=== PATIENT | female | born 1975 | race Caucasian/White ===

== ENCOUNTER 2016-11-07 20:22 | Emergency (ER) | payer OTHER ==
[~2016-11-07] VITALS: Ht 165.1 cm; Wt 110.2 kg
[~2016-11-07 20:22] MED LIST: ATORVASTATIN CA20 MG PO; BENADRYL ALLERG25 MG PO; CRANBERRY300 MG PO; DICLOFENAC SODI75 MG PO; DIFLUCAN100 MG PO; ESCITALOPRAM OX10 MG PO; FLOMAX0.4 MG PO; INDOMETHACIN50 MG PO; LIDOCAINE30 G TOP; LIPITOR20 MG PO; MEDROL4 M1 PO; MELOXICAM15 MG PO; NAPROXEN500 MG PO; NARATRIPTAN2.5 MG PO; NORCO 5-325 TA1 EACH PO; OMEPRAZOLE20 MG PO; OXYCODONE HCL5 MG PO; PERCOCET 7.5-31 EACH PO; PRENATAL 19 TA1 EAC1 PO; SUMATRIPTAN SUC50 MG PO; TOPIRAMATE25 MG PO; TYLENOL SINUS PO; VALIUM5 MG PO; WELLBUTRIN XL300 MG PO; ZANAFLEX4 MG PO; ZONISAMIDE; [UNRECOGNIZED DRUG - REMARK]
[2016-11-07] MEDS ORDERED: NIACIN100 MG PO (20:41)
[2016-11-07] MEDS ORDERED: ASPIRIN325 MG PO (20:41)
== END 2016-11-07 23:06 | disposition home or self-care (01) ==
LOC: ED 20:22
DX: R51 Headache (principal); F32.9 Major depressive disorder, single episode, unspecified; F17.200 Nicotine dependence, unspecified, uncomplicated; Z87.442 Personal history of urinary calculi; Z98.51 Tubal ligation status; Z91.048 Other nonmedicinal substance allergy status; Z88.5 Allergy status to narcotic agent; Z88.1 Allergy status to other antibiotic agents; Z79.899 Other long term (current) drug therapy; Z79.82 Long term (current) use of aspirin
CPT/HCPCS: 96361; 96374; 96375; 99282; J1200; J1885; J2765; J7030

== ENCOUNTER 2016-11-26 12:17 | Emergency (ER) | payer OTHER ==
[~2016-11-26] VITALS: Ht 165.1 cm; Wt 145.2 kg
[~2016-11-26 12:17] MED LIST changes: +ASPIRIN325 MG PO; +NIACIN100 MG PO
[2016-11-26] MEDS ORDERED: ZITHROMAX250 MG PO (14:00)
[2016-11-26] MEDS ORDERED: PROCHLORPERAZIN10 MG PO (14:00)
== END 2016-11-26 14:09 | disposition home or self-care (01) ==
LOC: ED 12:17
DX: R51 Headache (principal); F32.9 Major depressive disorder, single episode, unspecified; Z87.442 Personal history of urinary calculi; Z90.49 Acquired absence of other specified parts of digestive tract; Z98.51 Tubal ligation status; Z98.890 Other specified postprocedural states; Z88.5 Allergy status to narcotic agent; Z88.1 Allergy status to other antibiotic agents; Z88.8 Allergy status to other drugs, medicaments and biological substances; Z79.899 Other long term (current) drug therapy
CPT/HCPCS: 96372; 99283; J1885

== ENCOUNTER 2017-01-26 09:29 | Emergency (ER) | payer OTHER ==
[~2017-01-26] VITALS: Ht 165.1 cm; Wt 104.3 kg
[~2017-01-26 09:29] MED LIST changes: +PROCHLORPERAZIN10 MG PO; +ZITHROMAX250 MG PO
[2017-01-26] MEDS ORDERED: PERCOCET 7.5-31 EACH PO (09:46)
[2017-01-26] MEDS ORDERED: PREDNISONE20 MG PO (10:02)
== END 2017-01-26 10:25 | disposition home or self-care (01) ==
LOC: ED 09:29
DX: S16.1XXA Strain of muscle, fascia and tendon at neck level, initial encounter (principal); S86.911A Strain of unspecified muscle(s) and tendon(s) at lower leg level, right leg, initial encounter; F32.9 Major depressive disorder, single episode, unspecified; F17.200 Nicotine dependence, unspecified, uncomplicated; Z87.442 Personal history of urinary calculi; Z98.51 Tubal ligation status; Z91.048 Other nonmedicinal substance allergy status; Z88.5 Allergy status to narcotic agent; Z88.1 Allergy status to other antibiotic agents; Z88.8 Allergy status to other drugs, medicaments and biological substances; Z79.899 Other long term (current) drug therapy; V49.9XXA Car occupant (driver) (passenger) injured in unspecified traffic accident, initial encounter
CPT/HCPCS: 99283

== ENCOUNTER 2017-04-25 06:40 | Day surgery (SDC) | payer OTHER ==
[~2017-04-25] VITALS: Ht 165.1 cm; Wt 151.1 kg
[~2017-04-25 06:40] MED LIST changes: +NORCO 7.5-3251 EACH PO; +PREDNISONE20 MG PO
--- NOTE | 2017-04-25 10:19 | NUR ---
04/25/17 Denis9 Yudy Wolf 1009 PT ARRIVED ASLEEP AND REACTIVE TO STIMULI, PT MAINTAINING AIRWAY AND SNORING. ICE PLACED ON LLE.
--- NOTE | 2017-04-25 11:59 | OR ---
[facility] [address], [place] [address] Signed DATE OF OPERATION: 04/25/2017 SURGEON: Roselia Foley MD PREOPERATIVE DIAGNOSIS: Left patella fracture. POSTOPERATIVE DIAGNOSIS: Left patella fracture. PROCEDURE PERFORMED: Open reduction and internal fixation, left patella. CHUTE GREASER: Yumiko Pierre PA-C. Yumiko was present in critical for positioning, retraction, and wound closure. ANESTHESIA: General with block. TOURNIQUET TIME: 49 minutes. IMPLANTS: Two 3.0 cannulated screws, DBX bone putty as well. BRIEF HISTORY: Emma is a 41-year-old female who underwent ACL reconstruction using a patellar tendon bone block. She suffered a fall and fractured her patella. She was able to attain and maintain during straight leg raise; however, there was displacement of the fracture on CT scan. Because of the displacement, I did not feel the wound heal, particularly with her being a smoker. We elected to proceed with closure and fixation of the fracture fragment. Risks, benefits, and alternatives were discussed and she elects to proceed. DESCRIPTION OF PROCEDURE: Once consent was obtained, she was taken to the operating room. After adequate anesthesia, she was placed on operating room table. All downside pressure points well padded. A well-padded proximal thigh tourniquet was placed and a hip bump was placed. The leg was then prepped and draped in a standard sterile fashion exsanguinated using Electronically Signed By: ROSELIA FOLEY MD 04/25/17 1159 PATIENT NAME: EMMA VELASQUEZ OPERATIVE REPORT DATE OF : 73 REPORT #: [id number] PHYSICIAN: ROSELIA FOLEY MD PCP: LIBAN AYALA MD REPORT IS CONFIDENTIAL AND NOT TO BE RELEASED WITHOUT AUTHORIZATION [facility] [address], [place] [address] Signed Esmarch bandage. Tourniquet inflated to 300 mmHg. The prior incision anteriorly was opened and extended 2 inches distally. It was taken through skin and subcutaneous tissue. The fracture was readily identifiable and was distracted and there was no healing. It was cleaned of all debris and reapproximated using the clamp. It was checked using the image intensifier and found to be satisfactorily aligned. The guidepins for the 3-0 cannulated set were started on the lateral aspect and advanced across the patella and engage the medial side. This lateral side was fairly small and placed relatively close together. There was a small fracture superiorly. It was left alone as it was quite stable. Once these K-wires were placed, they were over drilled and appropriate length screws were placed. Excellent purchase of the bone was obtained. The remaining bony defect was filled with DBX bone putty and the anterior retinaculum and scar tissue was closed over the top of this. This was done with #1 Vicryl. Again the lateral and medial retinaculum were intact. The wound was then copiously irrigated with antibiotic solution, closed with 3-0 nylon. Intraoperative radiographs did show good reduction and placement of the screws. The wound was closed with #1 Vicryl for the retinaculum, 0 StrataFix for subcutaneous tissue, and nina for the skin. The wound was dressed with an Adaptic ABD and Dashawn wrap. She did have an allergic reaction to the Mepilex on her last operation. She was then placed in a brace and taken to recovery room in satisfactory condition. All sponge, needle, and instrument counts were correct. Roselia Foley MD BA/WENDY /[id number] Copies: ~ Electronically Signed By: ROSELIA FOLEY MD 04/25/17 1159 PATIENT NAME: EMMA VELASQUEZ OPERATIVE REPORT DATE OF : 73 REPORT #: [id number] PHYSICIAN: ROSELIA FOLEY MD PCP: LIBAN AYALA MD REPORT IS CONFIDENTIAL AND NOT TO BE RELEASED WITHOUT AUTHORIZATION
--- NOTE | 2017-04-25 12:02 | NUR ---
LE 1120: IN TO CHECK ON PT, PT AWAKE TALKING WITH FAMILY. PT RATES PAIN 7/10. ORDERS WRITTEN PER SPRING TESTER FOR IV DILAUDID. PT REQUEST COFFEE, GIVEN. PT GIVEN PUDDING AND CRACKERS. ORAL PAIN MEDICATION ALSO GIVEN FOR 7/10 PAIN.
--- NOTE | 2017-04-25 12:05 | NUR ---
IN TO CHECK ON PT, VITALS STABLE. PT RESTING IN BED. DR. CORTEZ IN TO SEE PT. DISCUSS RX FOR CRUTCHES, PER DR. CORTEZ HE WOULD LIKE PT TO USE WALKER FOR STABILITY. PT AGREES. NO FURTHER NEEDS AT THIS TIME. PT WATCHING TV, CALL LIGHT IN REACH.
--- NOTE | 2017-04-25 12:34 | NUR ---
IN TO CHECK ON PT, PT AWAKE RESTING IN BED. PT RATES PAIN 6/10 IN L KNEE. PT REQUESTED MORE DILAUDID, 0.2 MG GIVEN. ICE WATER REFILLED. PT WATCHING TV. ICE REFRESHED TO L KNEE. NO FURTHER NEEDS AT THIS TIME. CALL LIGHT IN REACH.
--- NOTE | 2017-04-25 13:07 | NUR ---
UP TO BR USING WALKER NON WT BEARING TO BR ON WAY BACK TO BED LIGHT STEPPING ON L FOOT. REMINDED TO NOT STEP ON LEFT.
--- NOTE | 2017-04-25 13:34 | NUR ---
LE 1310: IN ROOM TO CHECK ON PT, PT ASSISTED UP TO RESTROOM BY CHRISTOPHER BIRD. PT STATES SHE IS READY FOR DISCHARGE. PT HAS MET CRITERIA FOR DC'D. IV REMOVED. DISCUSSED CONTINUES AND STRICT TOE TOUCH WEIGHT BEARING WITH WALKER UNTIL F/U WITH DR. CORTEZ. PT UNDERSTANDS. PT ASSISTED WITH DRESSING, TOLERATED WELL. TRANSFER TO , NO COMPLAINTS. ALL QUESTIONS ANSWERED, PT WHEELED OUT BY RN.
== END 2017-04-25 13:20 | disposition home or self-care (01) ==
LOC: DS 06:40
PROVIDERS: Specialist
PROC: 0QSF04Z Reposition Left Patella with Internal Fixation Device, Open Approach (ICD-10-PCS; principal; 2017-04-25 11:15)
DX: S82.042A Displaced comminuted fracture of left patella, initial encounter for closed fracture (principal); F32.9 Major depressive disorder, single episode, unspecified; M79.7 Fibromyalgia; K21.9 Gastro-esophageal reflux disease without esophagitis; M19.90 Unspecified osteoarthritis, unspecified site; F17.210 Nicotine dependence, cigarettes, uncomplicated; E78.00 Pure hypercholesterolemia, unspecified; Z88.0 Allergy status to penicillin; Z98.51 Tubal ligation status; Z88.1 Allergy status to other antibiotic agents; Z88.5 Allergy status to narcotic agent; Z91.048 Other nonmedicinal substance allergy status; Z79.82 Long term (current) use of aspirin; Z79.899 Other long term (current) drug therapy; W01.0XXA Fall on same level from slipping, tripping and stumbling without subsequent striking against object, initial encounter; Y93.89 Activity, other specified
CPT/HCPCS: 01392; 62322; 64450; 73560; 76942; C1713; C1769; J0330; J1100; J1170; J1885; J2250; J2405; J2704; J2795; J3010; J3490; J7120

== ENCOUNTER 2019-05-27 15:11 | Emergency (ER) | payer OTHER ==
[~2019-05-27] VITALS: Ht 165.1 cm; Wt 151.1 kg
--- OUTSIDE RECORDS SUMMARY | 2019-05-27 15:14 | XMS ---
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 Kaia has no Care Guidelines for this patient. Octavio VISIT COUNT (12 MO.) 1 [facility] TOTAL 1 NOTE: Visits indicate total known visits. ED/UCC VISIT TRACKING (12 MO.) 05/27/2019 15:11 [facility] [place] TYPE: Emergency COMPLAINT: - HEADACHE INPATIENT VISIT TRACKING (12 MO.) No inpatient visits to display in this time frame [email or web address]
[2019-05-27] MEDS ORDERED: PROCHLORPERAZIN10 MG PO (16:45)
== END 2019-05-27 16:54 | disposition home or self-care (01) ==
LOC: ED 15:11
DX: G43.909 Migraine, unspecified, not intractable, without status migrainosus (principal); F32.9 Major depressive disorder, single episode, unspecified; F17.200 Nicotine dependence, unspecified, uncomplicated; Z88.1 Allergy status to other antibiotic agents; Z88.5 Allergy status to narcotic agent; Z79.899 Other long term (current) drug therapy
CPT/HCPCS: 96361; 96374; 96375; 99283-25; J0780; J1100; J1200; J1885; J7030

== ENCOUNTER 2019-11-06 22:03 | Emergency (ER) | payer OTHER ==
[~2019-11-06] VITALS: Ht 165.1 cm; Wt 151.1 kg
--- OUTSIDE RECORDS SUMMARY | 2019-11-06 22:06 | XMS ---
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 EJt VISIT COUNT (12 MO.) 2 NOEMÍ Keen TOTAL 2 NOTE: Visits indicate total known visits. ED/UCC VISIT TRACKING (12 MO.) 11/06/2019 22:04 [facility] [place] TYPE: Emergency COMPLAINT: - RT EYE PROBLEM 05/27/2019 15:11 [facility] [place] TYPE: Emergency COMPLAINT: - HEADACHE DIAGNOSES: - Other long-term (current) drug therapy - Major depressive disorder, single episode, unspecified - Allergy status to other antibiotic agents status - Headache - Migraine, unspecified, not intractable, without status migrai - Nicotine dependence, unspecified, uncomplicated - Allergy status to narcotic agent status INPATIENT VISIT TRACKING (12 MO.) No inpatient visits to display in this time frame [email or web address]
[2019-11-06] MEDS ORDERED: CILOXAN5 ML OD (22:38)
== END 2019-11-06 22:50 | disposition home or self-care (01) ==
LOC: ED 22:03
DX: H10.9 Unspecified conjunctivitis (principal); G43.909 Migraine, unspecified, not intractable, without status migrainosus; F32.9 Major depressive disorder, single episode, unspecified; F17.200 Nicotine dependence, unspecified, uncomplicated; Z88.5 Allergy status to narcotic agent; Z88.1 Allergy status to other antibiotic agents; Z91.048 Other nonmedicinal substance allergy status; Z88.0 Allergy status to penicillin; Z79.899 Other long term (current) drug therapy; Z79.82 Long term (current) use of aspirin
CPT/HCPCS: 99283

== ENCOUNTER 2020-04-21 20:15 | Emergency (ER) | payer OTHER ==
[~2020-04-21] VITALS: Ht 165.1 cm; Wt 158.8 kg
[~2020-04-21 20:15] MED LIST changes: +CILOXAN5 ML OD
--- NOTE | 2020-04-22 20:07 | EKG ---
[facility] [address] [facility] [place], [place] [address] Signed Normal sinus rhythm Normal ECG When compared with ECG of 21-APR-2017 14:36, No significant change was found Confirmed by MERON MAO DO ([id number]) on 04/22/2020 8:07:25 PM Electronically Signed By: MERON MAO DO 04/22/202006 PATIENT NAME: ANA VELASQUEZ FRANCISCO Electrocardiogram DATE OF : 73 PHYSICIAN: MERON MAO DO REPORT #: [id number] REPORT IS CONFIDENTIAL AND NOT TO BE RELEASED WITHOUT AUTHORIZATION
== END 2020-04-21 20:41 | disposition home or self-care (01) ==
LOC: ED 20:15
DX: R55 Syncope and collapse (principal); F17.200 Nicotine dependence, unspecified, uncomplicated; Z91.048 Other nonmedicinal substance allergy status; Z88.5 Allergy status to narcotic agent; Z88.0 Allergy status to penicillin; Z79.899 Other long term (current) drug therapy; Z79.82 Long term (current) use of aspirin
CPT/HCPCS: 70450; 80053; 83735; 84484; 84703; 85025; 93005; 93010; 99284-25

== ENCOUNTER 2022-11-11 18:54 | Emergency (ER) | payer OTHER ==
[~2022-11-11] VITALS: Ht 162.6 cm; Wt 136.8 kg
[~2022-11-11 18:54] MED LIST changes: +AJOVY AUTO225 MG/1.5 SQ; +CARAFATE1 GM PO; +CYMBALTA60 MG PO; +METOPROLOL SUC100 MG PO; +NAPROSYN500 MG PO; +NORTRIPTYLINE H25 MG PO; +REGLAN10 MG PO; +SPIRIVA18 MCG INH; +TIZANIDINE HCL4 MG PO; +TOPAMAX50 MG PO; +VENTOLIN HFA18 GM; +ZANAFLEX2 M1 PO
[2022-11-11 22:28] VITALS: BP 169/101
== END 2022-11-11 22:29 | disposition home or self-care (01) ==
LOC: ED 18:54
DX: G43.919 Migraine, unspecified, intractable, without status migrainosus (principal); M19.90 Unspecified osteoarthritis, unspecified site; F17.200 Nicotine dependence, unspecified, uncomplicated; Z88.0 Allergy status to penicillin; Z88.5 Allergy status to narcotic agent; Z79.899 Other long term (current) drug therapy; Z79.82 Long term (current) use of aspirin
CPT/HCPCS: 96374; 96375; 99283-25; J0780; J1100; J1200; J1885; J7121

== ENCOUNTER 2022-11-17 15:47 | Emergency (ER) | payer OTHER ==
[~2022-11-17] VITALS: Ht 162.6 cm; Wt 136.5 kg
--- OUTSIDE RECORDS SUMMARY | 2022-11-17 15:57 | XMS ---
PreManage Notification: ANA FRANKLIN Security General Operator Events No recent Security Events currently on file CRITERIA MET - [facility] - 2 Visits in 30 Days CARE PROVIDERS JEREMIAS [facility] 05/28/2019-Current PHONE: [phone] -, [place]- Dentist: Warehouse Driver [facility] PHONE: [phone] Kaia has no Care Guidelines for this patient. Octavio VISIT COUNT (12 MO.) 2 [facility] TOTAL 2 NOTE: Visits indicate total known visits. ED/UCC VISIT TRACKING (12 MO.) 11/17/2022 15:47 [facility] [place] TYPE: Emergency COMPLAINT: - CHEST PAIN 11/11/2022 18:55 [facility] [place] TYPE: Emergency COMPLAINT: - HEADACHE DIAGNOSES: - Allergy status to narcotic agent - Allergy status to penicillin - Headache, unspecified - [facility] (current) use of aspirin - Migraine, unspecified, intractable, without status migrainosus - Nicotine dependence, unspecified, uncomplicated - Other jail (current) drug therapy - Unspecified osteoarthritis, unspecified site INPATIENT VISIT TRACKING (12 MO.) No inpatient visits to display in this time frame [email or web address]
[2022-11-17 16:09] LABS: HEMATOCRIT 43.2 % (35.0-50.0); HEMOGLOBIN 14.1 g/dL (12.0-18.0); MCH 29.8 (27-36); MCHC 32.5 g/dl (30-36); MCV 91.6 fl (81-99); PLATELET COUNT 492 K/uL (140-440); RBC 4.72 M/ul (4.3-5.7); RDW 14.4 (10.5-15.0)
[2022-11-17 16:20] LABS: ALBUMIN 3.9 g/dL (3.4-5.0); ALBUMIN/GLOBULIN RATIO 1.22 (1.1-2.4); ALKALINE PHOSPHATASE 98 U/L (46-116); ALT (SGPT) 34 U/L (14-59); ANION GAP 15.4 (7-21); AST (SGOT) 16 U/L (15-37); BILIRUBIN, TOTAL 0.5 ng/dL (0.2-1.0); BUN/CREATININE RATIO 18.44 (6.0-28.6); CALCIUM 9.2 mg/dL (8.5-10.1); CARBON DIOXIDE 22 mmol/L (21-32); CHLORIDE 108 mmol/L (98-107); CREATININE, SERUM 1.03 mg/dL (0.55-1.02); GLOMERULAR FILTRATION RATE,EST 67 mL/min (>60); MAGNESIUM 1.6 mg/dL (1.8-2.4); POTASSIUM 3.4 mmol/L (3.5-5.1); PROTEIN, TOTAL 7.1 g/dL (6.4-8.2); UREA NITROGEN 19 mg/dL (7-18)
[2022-11-17 16:28] LABS: LYMPHOCYTES, MANUAL DIFF 7; MONOCYTES, MANUAL DIFF 3; NEUTROPHILS, MANUAL DIFF 90
[2022-11-17 17:37] LABS: HEMATOCRIT 39.5 % (35.0-50.0); HEMOGLOBIN 12.7 g/dL (12.0-18.0); MCH 29.5 (27-36); MCHC 32.1 g/dl (30-36); PLATELET COUNT 461 K/uL (140-440); RDW 14.5 (10.5-15.0)
[2022-11-17 17:54] LABS: LYMPHOCYTES, MANUAL DIFF 6; MONOCYTES, MANUAL DIFF 2; NEUTROPHILS, MANUAL DIFF 92
[2022-11-17 18:11] LABS: BILIRUBIN, URINE NEGATIVE (negative); BLOOD/HGB, URINE NEGATIVE (Negative); KETONE, URINE NEGATIVE (Negative); LEUK ESTERASE, URINE NEGATIVE (negative); NITRITE, URINE NEGATIVE (negative); PH, URINE 5.5 (5-7)
[2022-11-17 18:42] VITALS: BP 146/87
--- NOTE | 2022-11-18 12:39 | EKG ---
[facility] [address] [facility] [place] [address] Signed Sinus tachycardia T wave abnormality, consider inferior ischemia Abnormal ECG No previous ECGs available Confirmed by JANEEN BRUSH MD ([id number]) on 11/18/2022 12:38:45 PM Electronically Signed By: JANEEN BRUSH 11/18/22 1238 PATIENT NAME: ANA FRANKLIN Electrocardiogram DATE OF : 73 PHYSICIAN: JANEEN BRUSH REPORT #: [id number] REPORT IS CONFIDENTIAL AND NOT TO BE RELEASED WITHOUT AUTHORIZATION
== END 2022-11-17 18:42 | disposition home or self-care (01) ==
LOC: ED 15:47
PROVIDERS: Emergency Medicine
DX: R07.89 Other chest pain (principal); D72.829 Elevated white blood cell count, unspecified; R68.84 Jaw pain; R30.0 Dysuria; R19.7 Diarrhea, unspecified; R05.9 Cough, unspecified; R00.0 Tachycardia, unspecified; G43.909 Migraine, unspecified, not intractable, without status migrainosus; F17.200 Nicotine dependence, unspecified, uncomplicated; Z88.0 Allergy status to penicillin; Z88.5 Allergy status to narcotic agent; Z88.6 Allergy status to analgesic agent; Z91.048 Other nonmedicinal substance allergy status; Z79.899 Other long term (current) drug therapy; Z79.51 Long term (current) use of inhaled steroids; Z79.82 Long term (current) use of aspirin
CPT/HCPCS: 36415; 71045; 80053; 81003; 83690; 83735; 84484; 85025; 85379; 93005; 93010; J1170

== ENCOUNTER 2023-06-09 21:22 | Emergency (ER) | payer OTHER ==
[~2023-06-09] VITALS: Ht 162.6 cm; Wt 130.0 kg
[~2023-06-09 21:22] MED LIST changes: +CYCLOBENZAPRINE10 MG PO; +METOCLOPRAMIDE10 MG PO; +TAMIFLU75 MG PO; +UBRELVY100 MG PO
[2023-06-09 21:39] LABS: HEMATOCRIT 46.8 % (35.0-50.0); MCV 90.9 fl (81-99); RBC 5.15 M/ul (4.3-5.7)
[2023-06-09 21:45] LABS: BASOPHILS 0.3 % (0-2); EOSINOPHILS 1.7 % (0-6); HEMOGLOBIN 15.3 g/dL (12.0-18.0); LYMPHOCYTES 35.3 % (24-44); MCH 29.6 (27-36); MCHC 32.6 g/dl (30-36); MONOCYTES 6.1 % (0-12); NEUTROPHILS 56.6 % (39-80); PLATELET COUNT 455 K/uL (140-440)
[2023-06-09] MEDS ORDERED: NITROGLYCERIN PACKET TOP ONE (21:45)
[2023-06-09 21:52] LABS: INR 0.96 (0.80-1.30); PROTIME 12.1 Sec (11.2-14.2)
[2023-06-09 22:02] LABS: ALBUMIN 3.7 g/dL (3.4-5.0); ALBUMIN/GLOBULIN RATIO 1.09 (1.1-2.4); ANION GAP 14.3 (7-21); BILIRUBIN, TOTAL 0.3 ng/dL (0.2-1.0); BUN/CREATININE RATIO 12.24 (6.0-28.6); CALCIUM 8.7 mg/dL (8.5-10.1); CREATININE, SERUM 0.98 mg/dL (0.55-1.02); MAGNESIUM 1.7 mg/dL (1.8-2.4); POTASSIUM 3.3 mmol/L (3.5-5.1); PROTEIN, TOTAL 7.1 g/dL (6.4-8.2)
[2023-06-09] MEDS ORDERED: CYCLOBENZAPRINE HCL 10 MG HOME.PACK PO ONE (23:45)
[2023-06-09 23:58] VITALS: BP 130/83
--- NOTE | 2023-06-13 07:25 | EKG ---
[facility] [address] [facility] [place], [place] [address] Signed Normal sinus rhythm Normal ECG When compared with ECG of 05-APR-2023 19:29, No significant change was found Confirmed by Martin Sanders MD ([id number]) on 06/13/2023 7:25:12 AM Electronically Signed By: MARTIN SANDERS 06/13/23 0725 PATIENT NAME: RIGOBERTOANAMARLENE SINGH Electrocardiogram DATE OF : 73 PHYSICIAN: MARTIN SANDERS REPORT #: [id number] REPORT IS CONFIDENTIAL AND NOT TO BE RELEASED WITHOUT AUTHORIZATION
== END 2023-06-09 23:59 | disposition home or self-care (01) ==
LOC: ED 21:22
PROVIDERS: Family Medicine
DX: R07.89 Other chest pain (principal); F17.200 Nicotine dependence, unspecified, uncomplicated; Z88.0 Allergy status to penicillin; Z88.5 Allergy status to narcotic agent; Z91.09 Other allergy status, other than to drugs and biological substances; Z79.899 Other long term (current) drug therapy
CPT/HCPCS: 36415; 71045; 80053; 83735; 83880; 84484; 85025; 85379; 85610; 93005; 93010; 99285-25

== ENCOUNTER 2023-11-30 15:06 | Emergency (ER) | payer OTHER ==
[~2023-11-30] VITALS: Ht 162.6 cm; Wt 137.0 kg
[2023-11-30] MEDS ORDERED: NITROGLYCERIN 0.4 MG SUBL SL PRN (16:00)
[2023-11-30] MEDS ORDERED: ASPIRIN 81 MG CHEW PO ONE (16:00)
[2023-11-30 16:09] LABS: BASOPHILS 0.3 % (0-2); EOSINOPHILS 0.7 % (0-6); HEMATOCRIT 46.7 % (35.0-50.0); LYMPHOCYTES 7.2 % (24-44); MCH 31.6 (27-36); MCHC 34.3 g/dl (30-36); MCV 92.2 fl (81-99); MONOCYTES 4.1 % (0-12); NEUTROPHILS 87.7 % (39-80); PLATELET COUNT 399 K/uL (140-440); RBC 5.07 M/ul (4.3-5.7); RDW 13.8 (10.5-15.0)
[2023-11-30 16:27] LABS: ALBUMIN 3.7 g/dL (3.4-5.0); ALBUMIN/GLOBULIN RATIO 1.16 (1.1-2.4); ALKALINE PHOSPHATASE 107 U/L (46-116); ALT (SGPT) 19 U/L (14-59); ANION GAP 15.8 (7-21); AST (SGOT) 14 U/L (15-37); BILIRUBIN, TOTAL 0.6 ng/dL (0.2-1.0); BUN/CREATININE RATIO 21.59 (6.0-28.6); CALCIUM 8.6 mg/dL (8.5-10.1); CARBON DIOXIDE 21 mmol/L (21-32); CHLORIDE 109 mmol/L (98-107); CREATININE, SERUM 0.88 mg/dL (0.55-1.02); GLOMERULAR FILTRATION RATE,EST 81 mL/min (>60); MAGNESIUM 1.6 mg/dL (1.8-2.4); POTASSIUM 3.8 mmol/L (3.5-5.1); PROTEIN, TOTAL 6.9 g/dL (6.4-8.2); UREA NITROGEN 19 mg/dL (7-18)
[2023-11-30 18:00] VITALS: BP 125/84
--- NOTE | 2023-12-01 15:29 | EKG ---
[facility] [facility] [address] [facility] [place], [place] [address] Signed Normal sinus rhythm Nonspecific T wave abnormality Abnormal ECG No previous ECGs available Confirmed by Alanna Lara MD ([id number]) on 12/01/2023 3:28:50 PM Electronically Signed By: ALANNA LARA MD 12/01/23 1529 PATIENT NAME: ANA FRANKLIN Electrocardiogram DATE OF : 73 PHYSICIAN: ALANNA LARA MD REPORT #: [id number] REPORT IS CONFIDENTIAL AND NOT TO BE RELEASED WITHOUT AUTHORIZATION
== END 2023-11-30 18:02 | disposition home or self-care (01) ==
LOC: ED 15:06
PROVIDERS: Emergency Medicine
DX: R07.89 Other chest pain (principal); G43.909 Migraine, unspecified, not intractable, without status migrainosus; M79.7 Fibromyalgia; Z88.0 Allergy status to penicillin; Z91.048 Other nonmedicinal substance allergy status; Z88.5 Allergy status to narcotic agent; Z88.1 Allergy status to other antibiotic agents; Z79.82 Long term (current) use of aspirin; Z79.899 Other long term (current) drug therapy
CPT/HCPCS: 36415; 71045; 80053; 83735; 84484; 85025; 93005; 93010; 99285-25; A9270

== ENCOUNTER 2024-01-27 08:54 | Emergency (ER) | payer OTHER ==
[~2024-01-27] VITALS: Ht 162.6 cm; Wt 141.2 kg
[2024-01-27] MEDS ORDERED: SPIRIVA RESPIMAT4 GM INH (09:08)
[2024-01-27] MEDS ORDERED: HYDROXYZINE HCL10 MG PO (09:08)
[2024-01-27] MEDS ORDERED: METOCLOPRAMIDE HCL 10 MG/2 ML SDV IV ONE (09:45)
[2024-01-27] MEDS ORDERED: KETOROLAC TROMETHAMINE 30 MG/ML VIAL IV ONE (09:45)
[2024-01-27] MEDS ORDERED: diphenhydrAMINE HCL 50 MG/ML VIAL IV ONE (09:45)
[2024-01-27] MEDS ORDERED: MAGNESIUM SULFATE 2 GM/50 ML BAG IV ONE (09:45)
[2024-01-27] MEDS ORDERED: SODIUM CHLORIDE 0.9% 1,000 ML IV PRN (09:45)
[2024-01-27] MEDS ORDERED: PANTOPRAZOLE SODIUM 40 MG/10 ML VIAL IV ONE (09:45)
[2024-01-27] MEDS ORDERED: KETOROLAC TROME10 MG PO (10:55)
[2024-01-27 11:17] VITALS: BP 142/84
== END 2024-01-27 11:17 | disposition home or self-care (01) ==
LOC: ED 08:54
DX: G43.909 Migraine, unspecified, not intractable, without status migrainosus (principal); F17.200 Nicotine dependence, unspecified, uncomplicated; Z88.0 Allergy status to penicillin; Z88.5 Allergy status to narcotic agent; Z91.09 Other allergy status, other than to drugs and biological substances; Z88.1 Allergy status to other antibiotic agents; Z79.899 Other long term (current) drug therapy; Z79.82 Long term (current) use of aspirin
CPT/HCPCS: 96365; 96375; 99283-25; J1200; J1885; J2470; J2765; J3475; J7030

== ENCOUNTER 2024-03-13 12:16 | Emergency (ER) | payer OTHER ==
[~2024-03-13] VITALS: Ht 162.6 cm; Wt 142.9 kg
[~2024-03-13 12:16] MED LIST changes: +HYDROXYZINE HCL10 MG PO; +KETOROLAC TROME10 MG PO; +SPIRIVA RESPIMAT4 GM INH
[2024-03-13] MEDS ORDERED: ALBUTEROL/IPRATROPIUM 3 ML NEB INH ONE (12:45)
[2024-03-13] MEDS ORDERED: DEXAMETHASONE SOD PHOS 10 MG/ML VIAL PO ONE (12:45)
[2024-03-13 13:08] LABS: CORONAVIRUS COVID-19 AG NEGATIVE (NEGATIVE); INFLUENZA A AG NEGATIVE (NEGATIVE); INFLUENZA B AG NEGATIVE (NEGATIVE)
[2024-03-13] MEDS ORDERED: VENTOLIN HFA18 GM INH (13:14)
[2024-03-13] MEDS ORDERED: BENZONATATE100 MG PO (13:14)
[2024-03-13 13:26] VITALS: BP 131/71
[2024-03-18] MEDS ORDERED: AZITHROMYCIN250 MG PO (11:20)
[2024-03-18] MEDS ORDERED: PREDNISONE20 MG PO (14:29)
[2024-03-18] MEDS ORDERED: IPRAT-ALBUT 0.5-3 ML INH (14:30)
== END 2024-03-13 13:27 | disposition home or self-care (01) ==
LOC: ED 12:16
PROVIDERS: Emergency Medicine
DX: J06.9 Acute upper respiratory infection, unspecified (principal); G43.909 Migraine, unspecified, not intractable, without status migrainosus; F17.290 Nicotine dependence, other tobacco product, uncomplicated; Z88.0 Allergy status to penicillin; Z88.5 Allergy status to narcotic agent; Z88.1 Allergy status to other antibiotic agents; Z91.048 Other nonmedicinal substance allergy status; Z79.899 Other long term (current) drug therapy
CPT/HCPCS: 36415; 94640; 99283-25; 99406; J1100

== ENCOUNTER 2024-03-18 11:03 | Emergency (ER) | payer OTHER ==
[~2024-03-18] VITALS: Ht 162.6 cm; Wt 141.1 kg
[2024-03-18] MEDS ORDERED: predniSONE 20 MG TAB PO ONE (12:30)
[2024-03-18] MEDS ORDERED: OXYMETAZOLINE HCL 30 ML BTL NAS ONE (12:30)
[2024-03-18] MEDS ORDERED: ALBUTEROL/IPRATROPIUM 3 ML NEB INH ONE (12:30)
[2024-03-18 14:38] VITALS: BP 115/79
== END 2024-03-18 14:38 | disposition home or self-care (01) ==
LOC: ED 11:03
DX: J44.1 Chronic obstructive pulmonary disease with (acute) exacerbation (principal); F17.200 Nicotine dependence, unspecified, uncomplicated; Z88.0 Allergy status to penicillin; Z88.1 Allergy status to other antibiotic agents; Z88.5 Allergy status to narcotic agent; Z91.048 Other nonmedicinal substance allergy status; Z79.899 Other long term (current) drug therapy; Z79.82 Long term (current) use of aspirin
CPT/HCPCS: 71045; 94640; 99285-25; J7512

== ENCOUNTER 2024-06-24 20:03 | Emergency (ER) | payer OTHER | END 2024-06-24 22:28 | disposition home or self-care (01) | LOC: ED 20:03 | DX: N13.2 Hydronephrosis with renal and ureteral calculous obstruction (principal); G43.909 Migraine, unspecified, not intractable, without status migrainosus; Z79.82 Long term (current) use of aspirin; Z79.899 Other long term (current) drug therapy; Z88.0 Allergy status to penicillin; Z91.048 Other nonmedicinal substance allergy status; Z88.5 Allergy status to narcotic agent; Z88.1 Allergy status to other antibiotic agents; F17.200 Nicotine dependence, unspecified, uncomplicated ==

== ENCOUNTER 2024-07-03 05:36 | Day surgery (SDC) | payer OTHER ==
[~2024-07-03] VITALS: Ht 162.6 cm; Wt 145.5 kg
[~2024-07-03 05:36] MED LIST changes: +AZITHROMYCIN250 MG PO; +BENZONATATE100 MG PO; +IPRAT-ALBUT 0.5-3 ML INH; +LACTATED RINGER'S 1,000 ML IV SCH; +MACROBID 100 M100 MG PO; +MAGNESIUM OXID400 M1 PO; +SUCRALFATE1 GM PO; +VENTOLIN HFA18 GM INH
[2024-07-03 06:21] VITALS: BP 127/62
[2024-07-03] MEDS ORDERED: iopamidoL 30 ML VIAL ONE (06:41)
[2024-07-03] MEDS ORDERED: propofoL 200 MG/20 ML VIAL ONE (06:50)
[2024-07-03] MEDS ORDERED: ondansetron HCL 4 MG/2 ML VIAL ONE (06:50)
[2024-07-03] MEDS ORDERED: LIDOCAINE HCL 2% 5 ML SDV ONE (06:50)
[2024-07-03] MEDS ORDERED: DEXAMETHASONE SOD PHOS 4 MG/ML VIAL ONE (06:50)
[2024-07-03] MEDS ORDERED: MIDAZOLAM HCL 2 MG/2 ML VIAL ONE (06:51)
[2024-07-03] MEDS ORDERED: fentaNYL citrate 100 MCG/2 ML VIAL ONE (06:51)
[2024-07-03] MEDS ORDERED: IBLOOD GLUCOSE TEST STRIP 1 EA TEST VI PRN (07:00)
[2024-07-03] MEDS ORDERED: DEXTROSE IV SCH (07:00)
[2024-07-03] MEDS ORDERED: CIPROFLOXACIN IV SCH (07:00)
[2024-07-03] MEDS ORDERED: LIDOCAINE HCL 1% 5 ML SDV INJ ONE (07:00)
[2024-07-03] MEDS ORDERED: SUCCINYLCHOLINE IN 0.9% NACL 200 MG/10 ML SYRINGE ONE (07:19)
[2024-07-03] MEDS ORDERED: ROCURONIUM BROMIDE 50 MG/5 ML SYR ONE (07:19)
--- NOTE | 2024-07-03 07:24 | NUR ---
PT NOT AVAILABLE FOR VISIT. PROVIDED PRAYER.
[2024-07-03] MEDS ORDERED: KETOROLAC TROMETHAMINE 30 MG/ML VIAL IV PRN (07:30)
[2024-07-03] MEDS ORDERED: HYDROmorphone HCL 1 MG/ML SYR IV PRN ×2 (07:30→09:15)
[2024-07-03] MEDS ORDERED: OXYCODONE/APAP 5/325 TAB PO PRN (07:30)
[2024-07-03] MEDS ORDERED: ondansetron HCL 4 MG/2 ML VIAL IV PRN ×2 (07:30→09:15)
[2024-07-03] MEDS ORDERED: SUGAMMADEX SODIUM 200 MG/2 ML ML ONE (08:10)
--- NOTE | 2024-07-03 08:50 | NUR ---
07/03/24 0850 Tamy Alan PATIENT WAKES, SUDDENLY. ORAL AIRWAY IS REMOVED. HOB IS ELEVATED. PATIENT'S OXYGEN SATURATION INCREASES TO 98% ON 6L VIA MASK.
[2024-07-03 09:02] VITALS: BP 145/69
--- NOTE | 2024-07-03 09:09 | NUR ---
0900 PT ARRIVED TO DAY SURGERY FROM PACU VIA STREACHER. PT DROWSEY BUT ORIENTED. PT REPORTS 8/10 PAIN WHICH PATIENT WOULD LIKE PAIN MEDICTION FOR. PT UNDERSTANDING OF EATING SOMETHING BEFORE GETTING A PAIN PILL ON BOARD. VITALS TAKEN. IV ASSESSED. PT RESTING IN BED WITH CALL LIGHT WITHIN REACH. JELLO AND WATER AT PT BEDSIDE.
[2024-07-03] MEDS ORDERED: NALOXONE HCL 0.4 MG SYR IV PRN (09:15)
[2024-07-03] MEDS ORDERED: fentaNYL citrate 50 MCG/ML SDV IV PRN (09:15)
[2024-07-03] MEDS ORDERED: MEPERIDINE HCL 25 MG/1 ML VIAL IV PRN (09:15)
[2024-07-03] MEDS ORDERED: KETOROLAC TROMETHAMINE 30 MG/ML VIAL IV ONE (09:15)
[2024-07-03 09:52] VITALS: BP 146/78
--- NOTE | 2024-07-03 10:12 | NUR ---
0945 PT REPORTS 4/10 TOLERABLE PAIN AFTER PAIN MEDICATION. PT ABLE TO AMBULATE TO BATHROOM AND VOID 150 MLS OF CLEAR YELLOW URINE. PT ABLE TO AMBULATE BACK TO ROOM. PT DRESSED WITH RN ASSISTANCE AND SPOUSE IN ROOM. 0952 DISCHARGE INFORMATION GONE OVER WITH PT AND SPOUSE. NO QUESTIONS AT THIS TIME. PRESCRIPTION GIVEN TO PT AND SPOUSE. 0955 IV DISCONTINUED FOR DISCHARGE. 1000 PT DISCHARGED FROM DAY SURGERY VIA WHEELCHAIR TO THE FRONT OF THE HOSPITAL TO PT'S SPOUSE'S CAR.
[2024-07-03] MEDS ORDERED: SEVOFLURANE 250 ML BTL INH ONE (12:51)
--- NOTE | 2024-07-03 15:57 | EKG ---
[facility] [address] [facility] [place] [address] Signed Normal sinus rhythm Normal ECG When compared with ECG of 30-NOV-2023 15:18, No significant change was found Confirmed by Amy Ca MD () on 07/03/2024 3:56:55 PM Electronically Signed By: AMY CA MD 07/03/24 1557 PATIENT NAME: ANA FRANKLIN Electrocardiogram DATE OF : 73 PHYSICIAN: AMY CA MD REPORT #: [id number] REPORT IS CONFIDENTIAL AND NOT TO BE RELEASED WITHOUT AUTHORIZATION
== END 2024-07-03 10:00 | disposition home or self-care (01) ==
LOC: DS 05:36
PROVIDERS: ATTEND Urology
PROC: BT1DZZZ Fluoroscopy of Right Kidney, Ureter and Bladder (ICD-10-PCS; principal; 2024-07-03 07:30)
DX: N20.1 Calculus of ureter (principal); F31.9 Bipolar disorder, unspecified; E78.00 Pure hypercholesterolemia, unspecified; Z79.82 Long term (current) use of aspirin; Z79.899 Other long term (current) drug therapy; Z88.1 Allergy status to other antibiotic agents; Z88.5 Allergy status to narcotic agent; Z88.8 Allergy status to other drugs, medicaments and biological substances
CPT/HCPCS: 71045; 74420; 84703; 93005; 93010; C1769; J0330; J0744; J1100; J2003; J2250; J2405; J2704; J3010; J3490; J7121; Q9967

== ENCOUNTER 2024-10-24 11:09 | Emergency (ER) | payer OTHER ==
[~2024-10-24] VITALS: Ht 162.6 cm; Wt 150.0 kg
[~2024-10-24 11:09] MED LIST changes: -LACTATED RINGER'S 1,000 ML IV SCH
[2024-10-24] MEDS ORDERED: PREGABALIN25 MG PO (11:24)
[2024-10-24] MEDS ORDERED: ATORVASTATIN CA20 MG PO (11:25)
[2024-10-24] MEDS ORDERED: DIAZEPAM5 MG PO (11:25)
[2024-10-24] MEDS ORDERED: SODIUM CHLORIDE 0.9% 1,000 ML IV PRN (11:45)
[2024-10-24 12:01] LABS: BASOPHILS 0.7 % (0.1-1.2); EOSINOPHILS 2.1 % (0.7-5.8); LYMPHOCYTES 37.7 % (19.3-51.7); MCH 30.2 PG (25.6-32.2); MCHC 32.9 g/dL (32.2-35.5); MCV 91.8 fL (79.4-94.8); MONOCYTES 6.8 % (4.7-12.5); NEUTROPHILS 51.9 % (34.0-71.1); RBC 4.74 M/uL (3.93-5.22)
[2024-10-24 12:16] LABS: ALT (SGPT) 24.0 U/L (14-59); AST (SGOT) 13.0 U/L (15-37); GLOMERULAR FILTRATION RATE,EST 82.0 mL/min (>60); PROTEIN, TOTAL 6.3 g/dL (6.4-8.2); UREA NITROGEN 15.0 mg/dL (7-18)
[2024-10-24] MEDS ORDERED: ASPIRIN 81 MG CHEW PO ONE (13:00)
[2024-10-24] MEDS ORDERED: CLOPIDOGREL BISULFATE 75 MG TAB PO ONE (13:00)
[2024-10-24] MEDS ORDERED: PLAVIX75 MG PO (13:55)
[2024-10-24 14:08] VITALS: BP 142/92
--- NOTE | 2024-10-24 18:03 | EKG ---
[facility] [address] [facility] [place] [address] Signed Normal sinus rhythm Low voltage QRS Nonspecific T wave abnormality Abnormal ECG When compared with ECG of 03-JUL-2024 06:01, No significant change was found Confirmed by WESTLEY PETTIT MD ([id number]) on 10/24/2024 6:03:40 PM Electronically Signed By: WESTLEY PETTIT 10/24/24 1803 PATIENT NAME: ANA FRANKLIN [place]ANCIS[place] Electrocardiogram DATE OF : 73 PHYSICIAN: WESTLEY PETTIT REPORT #: [id number] REPORT IS CONFIDENTIAL AND NOT TO BE RELEASED WITHOUT AUTHORIZATION
== END 2024-10-24 14:06 | disposition home or self-care (01) ==
LOC: ED 11:09
PROVIDERS: Emergency Medicine
DX: H57.89 Other specified disorders of eye and adnexa (principal); G43.909 Migraine, unspecified, not intractable, without status migrainosus; F17.200 Nicotine dependence, unspecified, uncomplicated; Z79.899 Other long term (current) drug therapy; Z79.82 Long term (current) use of aspirin; Z91.048 Other nonmedicinal substance allergy status; Z88.0 Allergy status to penicillin; Z88.1 Allergy status to other antibiotic agents; Z88.5 Allergy status to narcotic agent; Z88.2 Allergy status to sulfonamides; Z88.8 Allergy status to other drugs, medicaments and biological substances
CPT/HCPCS: 36415; 70450; 70496; 70498; 71045; 80053; 85025; 93005; 93010; 96374; 96375; 99284-25; J1200; J1790; J7030; Q3014; Q9967